=== PATIENT | female | born 1955 | race Caucasian/White ===

== ENCOUNTER 2019-12-31 09:15 | Outpatient (REF) | payer MEDICARE, MEDICAID, SELFPAY | END 2019-12-31 09:16 | disposition home or self-care (01) | LOC: HO.HAP 09:15 | PROVIDERS: Visit Provider Internal Medicine | DX: H90.3 Sensorineural hearing loss, bilateral (principal) | CPT/HCPCS: V5011; V5020; V5160; V5259; V5266; V5275 ==

== ENCOUNTER 2020-03-21 13:54 | Outpatient (REF) | payer MEDICARE, MEDICAID, SELFPAY | END 2020-03-21 13:55 | disposition home or self-care (01) | LOC: HO.HAP 13:54 | PROVIDERS: Visit Provider Nurse Practitioner Family | DX: Z46.1 Encounter for fitting and adjustment of hearing aid (principal); H90.3 Sensorineural hearing loss, bilateral | CPT/HCPCS: V5266 ==

== ENCOUNTER 2020-06-09 12:53 | Outpatient (REF) | payer MEDICARE, MEDICAID, SELFPAY | END 2020-06-09 12:54 | disposition home or self-care (01) | LOC: HO.HAP 12:53 | PROVIDERS: Visit Provider Internal Medicine | DX: Z46.1 Encounter for fitting and adjustment of hearing aid (principal) | CPT/HCPCS: V5266 ==

== ENCOUNTER 2020-09-09 09:19 | Outpatient (REF) | payer MEDICARE, MEDICAID, SELFPAY ==
--- NOTE | 2020-09-09 09:57 | MHC.AU.P13 ---
Hearing Instrument Maintenance Date of Visit: 09/09/20 Right Ear: Line Controller: Phonak Model: Virto M50-312 Serial Number: [id number] Repair Warranty: 01/16/2023 Loss and Damage Warranty: 01/16/2023 Battery Size: 312 Type of Wax Guard: Cerustop Dispensed By: [facility] Date of Fittin12/31/2019 Left Ear: Line Controller: Phonak Model: Virto M50-312 Serial Number: [id number] Repair Warranty: 01/16/2023 Loss and Damage Warranty: 01/16/2023 Battery Size: 312 Type of Wax Guard: Cerustop Dispensed By: [facility] Date of Fittin12/31/2019 Follow-Up Summary: Hearing aids brought in for maintenance. Both aids cleaned and wax guard replaced - amplifying clearly. Recommendations: Recommendations: Hearing instrument follow-up or maintenance as needed. Signature: Provider: VIKY Graham
== END 2020-09-09 09:20 | disposition home or self-care (01) ==
LOC: HO.HAP 09:19
PROVIDERS: Visit Provider Nurse Practitioner Family
DX: Z46.1 Encounter for fitting and adjustment of hearing aid (principal); H90.3 Sensorineural hearing loss, bilateral
CPT/HCPCS: V5266

== ENCOUNTER 2020-10-15 08:11 | Outpatient (REF) | payer MEDICARE, MEDICAID, SELFPAY ==
--- NOTE | 2020-10-15 09:50 | MHC.AU.AHA ---
Adult Audiological Evaluation Date of Visit: 10/15/20 Reason for Appointment: History of hearing loss. Patient arrives to determine if there has been a change in hearing. Previous Hearing Test Results: At this clinic on 10/24/2019: Borderline-normal sloping to moderate/moderately-severe sensorineural hearing loss bilaterally Ear History: Ear Deformity: None Reported Recent Ear Drainage: None Reported Recent Ear Pain: None Reported Recent Ear Infections: None Reported Medical History: Medical History: Chronic Venous Insufficiency, Allergies Hearing Instrument History- Right Ear: Optics Test Technician: Phonak Model: [employer] M50-312 Serial Number: [id number] Battery Size: 312 Repair Warranty: 01/16/2023 Loss and Damage Warranty: 01/16/2023 Dispensed By: [facility] Date of Fittin12/31/2019 Hearing Instrument History- Left Ear: Optics Test Technician: Phonak Model: [employer] M50-312 Serial Number: [id number] Battery Size: 312 Warranty: 01/16/2023 Loss and Damage Warranty: 01/16/2023 Dispensed By: [facility] Date of Fittin12/31/2019 Otoscopy: Right Ear: Unremarkable Left Ear: Unremarkable Tympanometry: Tympanometry performed due to: To assess integrity of the middle ear system Right Ear: Normal Middle Ear System (Type A) Left Ear: Normal Middle Ear System (Type A) Hearing Evaluation: Transducer(s) Used: Insert Earphones Method: Conventional Audiometry Stimuli Used: Pure Tones Right Ear: Description of Hearing: Borderline-normal to moderately-severe sensorineural hearing loss Left Ear: Description of Hearing: Borderline-normal to moderate/moderately-severe sensorineural hearing loss Speech Recognition Threshold (SRT): Method Used: Recorded Lists Stimuli Used: Spondee Words Right Ear: 20 dBHL Left Ear: 25 dBHL Word Discrimination: Method: Recorded Lists Word Lists Used: W-22 Right Ear: 92% at 70 dBHL Left Ear: 92% at 70 dBHL Most Comfortable Level (MCL): Right Ear: 70 dBHL Left Ear: 70 dBHL Aided Testing: Aided word discrimination in soundfield at 55 dBHL: 100% in quiet, 96% in noise (+10 SNR) Comparison: Compared to the most recent evaluation: Hearing is stable. Recommendations: Audiological re-evaluation in one year. Hearing aid maintenance performed today. No programming changes made to hearing aids today. Diagnosis: Primary Diagnosis: H90.3 Bilateral Sensorineural Hearing Loss Signature: Provider: Raleigh Walsh, CCC-A
== END 2020-10-15 08:12 | disposition home or self-care (01) ==
LOC: HO.SH 08:11
PROVIDERS: Visit Provider Internal Medicine
DX: H90.3 Sensorineural hearing loss, bilateral (principal)
CPT/HCPCS: 92557; 92567; V5266

== ENCOUNTER 2021-01-15 10:51 | Outpatient (REF) | payer MEDICARE, MEDICAID, SELFPAY | END 2021-01-15 10:52 | disposition home or self-care (01) | LOC: HO.HAP 10:51 | PROVIDERS: Visit Provider Internal Medicine | DX: Z46.1 Encounter for fitting and adjustment of hearing aid (principal); H90.3 Sensorineural hearing loss, bilateral | CPT/HCPCS: V5266 ==

== ENCOUNTER 2021-03-24 12:29 | Outpatient (REF) | payer SELFPAY | END 2021-03-24 12:30 | disposition home or self-care (01) | LOC: HO.HAP 12:29 | PROVIDERS: Visit Provider Internal Medicine | DX: Z13.89 Encounter for screening for other disorder (principal) ==